=== PATIENT | male | born 1955 | race Caucasian/White ===

== ENCOUNTER 2019-03-30 16:47 | Inpatient (IN) | payer OTHER ==
[~2019-03-30] VITALS: Ht 167.6 cm; Wt 81.6 kg
[2019-03-30 16:47] VITALS: BP 146/87
--- NOTE | 2019-03-30 16:47 | NUR ---
PATIENT BIB BLS TO ER BED 1.
--- NOTE | 2019-03-30 16:47 | NUR ---
Patient BIBA BLS, transferred to bed 1. RN evaluating patient at bedside.
--- NOTE | 2019-03-30 16:55 | NUR ---
63 Y MALE BIBA C/O FOREIGN BODY, PT REPORTS STUCK PLASTIC CUP IN RECTUM. PAIN /. PATIENT DESCRIBES IT MORE DISCOMFORT. STATES THE INCIDENT OCCURRED APPROX 20 MIN BEFORE AMBULANCE ARRIVAL AT HIS HOME AND HE WASNT ABLE TO REMOVE THE OBJECT AFTER INSERTION. PT STATES HE IS VERY EMBARRASSED. VSS AT THIS TIME. PT [id number]. BED IS DOWN, LOCKED, BED RAIL X 1, ERMD TO SEE PT. PMH---HIGH CHOLESTEROL NKA
--- NOTE | 2019-03-30 16:58 | NUR ---
Dr. Ahumada evaluating patient at bedside.
--- NOTE | 2019-03-30 19:18 | NUR ---
RECEIVED REPORT FROM YANA TOVAR.
[2019-03-30] MEDS ORDERED: ATOR20TA PO (19:51)
--- NOTE | 2019-03-30 19:58 | NUR ---
PT IS AWAKE, ALERT, SITTING AT BEDSIDE. VSS. BREATHING EVEN, UNLABORED. SKIN PINK, WARM, DRY. NO COMPLAINTS AT THIS TIME.
[2019-03-30] MEDS ORDERED: ONDANSETRON 4 MG/2 ML VIAL IM/IVP PRN (20:05)
[2019-03-30] MEDS ORDERED: SENNA 8.6 MG TAB PO ONE (20:05)
[2019-03-30] MEDS ORDERED: MAGNESIUM CITRATE 300 ML BTL PO ONE (20:05)
[2019-03-30] MEDS ORDERED: DOCUSATE SODIUM 100 MG GELCAP PO PRN (20:05)
[2019-03-30] MEDS ORDERED: LACTULOSE 20 GM/30 ML UDC PO ONE (20:05)
[2019-03-30 20:06] LABS: BASOPHILS # (AUTO) 0.1 K/uL (0.00-0.22); BASOPHILS % (AUTO) 0.6 % (0.0-2.0); EOSINOPHILS # (AUTO) 0.1 K/uL (0-0.4); EOSINOPHILS % (AUTO) 0.9 % (0.0-4.0); HEMOGLOBIN 14.8 g/dL (12.0-18.0); LYMPHOCYTES # (AUTO) 0.6 K/uL (2.0-11.5); LYMPHOCYTES % (AUTO) 5.4 % (20.5-51.1); MEAN CORPUSCULAR HEMOGLOBIN 31 pg (27-31); MEAN CORPUSCULAR HGB CONC 34 g/dL (33-37); MONOCYTES # (AUTO) 0.7 K/uL (0.8-1.0); MONOCYTES % (AUTO) 6.9 % (1.7-9.3); NEUTROPHILS # (AUTO) 8.9 K/uL (1.8-7.7); NEUTROPHILS % (AUTO) 86.2 % (42.2-75.2); PLATELET COUNT (AUTO) 152 K/uL (140-450); RED BLOOD CELL COUNT(AUTO) 4.78 MIL/uL (4.20-6.10); RED CELL DISTRIBUTION WIDTH 12.9 % (11.6-13.7); WHITE BLOOD COUNT (AUTO) 10.3 K/uL (4.8-10.8)
[2019-03-30 20:22] LABS: PROTHROMBIN TIME 9.3 secs (10.8-13.4)
[2019-03-30 20:38] LABS: FREE T4 (FREE THYROXINE) 0.82 ng/dL (0.76-1.46); MAGNESIUM 2.3 mg/dL (1.8-2.4); PHOSPHORUS 2.7 mg/dL (2.5-4.9); THYROID STIMULATING HORMONE 2.53 uIU/mL (0.34-3.74)
--- NOTE | 2019-03-30 20:42 | NUR ---
Patient will be admitted to care of Dr. Reyes. Admited to MS. Will go to room 105B. Belongings list completed. Report to YANA Beasley.
[2019-03-30 20:43] LABS: ALBUMIN 4.1 g/dL (3.4-5.0); ANION GAP 10.3 (8-16); CARBON DIOXIDE 27.3 mmol/L (21-32); CREATININE 1.4 mg/dL (0.7-1.3); POTASSIUM 4.6 mmol/L (3.5-5.1); TOTAL BILIRUBIN 0.5 mg/dL (0.0-1.0)
[2019-03-30 20:47] VITALS: BP 131/85
--- NOTE | 2019-03-30 20:47 | NUR ---
REPORT RECEIVED BY ER NURSE, PATIENT AMBULATORY, AAOX4, DENIES PAIN, V/S STABLE. IV IN RIGHT AC 20 G SL, PATIENT REFUSED RECTAL EXAM. PATIENT STATED HE HAS BEEN NPO SINCE NOON. ADMISSION QUESTIONS ANSWERED, CONSENT FOR SURGERY SIGNED. MRSA SCREEN COLLECTED. PRE OP CHECK LIST QUESTIONED ANSWERED, WILL CONTINUE TO MONITOR.
--- NOTE | 2019-03-30 21:00 | NUR ---
CALLED [facility] SEE IF WANTED TO GIVE BOWEL PREP MEDICATIONS, MEDICATIONS WERE CANCELLED BY DR AMES DUE TO PATIENT IS NPO.
--- NOTE | 2019-03-30 21:05 | NUR ---
CALLED LAB FOR TYPE SCREEN STAT, CALLED RT FOR EKG STAT, CALLED RADIOLOGY FOR CHEST X-RAY STAT
--- NOTE | 2019-03-30 21:15 | NUR ---
DR BOTELLO STATED HE DID NOT WANT CROSS SCREEN DONE, NOTIFIED LAB
[2019-03-30] MEDS ORDERED: LABETALOL 100 MG/20 ML VIAL ONE (21:26)
--- NOTE | 2019-03-30 21:30 | NUR ---
RT AT BEDSIDE PERFORMING EKG
--- NOTE | 2019-03-30 21:37 | NUR ---
PATIENT LEFT TO OR, PATIENT STABLE
[2019-03-30] MEDS ORDERED: HYDROmorphone 1 MG/ML AMP IVP PRN (21:50)
[2019-03-30] MEDS ORDERED: ONDANSETRON 4 MG/2 ML VIAL IVP PRN (21:50)
[2019-03-30] MEDS ORDERED: KETAMINE 500 MG/5 ML VIAL ONE (21:52)
--- NOTE | 2019-03-30 23:00 | NUR ---
ORDERS TO PLACE PATIENT ON TELE DUE TO BP 220/120 IN OR
--- NOTE | 2019-03-30 23:10 | NUR ---
NOTED RECTAL BLEEDING
--- NOTE | 2019-03-30 23:17 | NUR ---
CALLED PHARMACY TOLD THAT NEOMYCIN DOES NOT COME IN IV FORM ONLY PO.
--- NOTE | 2019-03-30 23:25 | NUR ---
CALL FROM DR ZAMUDIO ORDER FOR NEOMYCIN 1 GRAM PO ONCE AT MIDNIGHT THAN 1/2 GRAM AGAIN AT 4 AM, FLAGYL PO 500 ML AT MIDNIGHT THAN AT 4 AM.
[2019-03-30] MEDS: NACL 0.9% 1,000 ML IV SCH (23:55)
[2019-03-31] VITALS: BP 158/88
[2019-03-31] MEDS ORDERED: NEOMYCIN 500 MG TAB PO SCH
--- NOTE | 2019-03-31 00:07 | NUR ---
CONSENT IS SIGNED AND IN CHART
--- NOTE | 2019-03-31 00:34 | NUR ---
NEOMYCIN NOT AVAILABLE, CHARGE NURSE AWARE, HOUSE SUP AWARE
--- NOTE | 2019-03-31 00:58 | NUR ---
PATIENT NOT ON BIG BOARD FOR SX TOMORROW MORNING
--- NOTE | 2019-03-31 03:00 | NUR ---
ERYTHROMYCIN PO NOT AVAILABLE, CHARGE NURSE AND HOUSE SUP AWARE, NOTIFIED DR AMES THAT MEDICATION IS NOT AVAILABLE.
--- NOTE | 2019-03-31 03:20 | NUR ---
DR AMES WILL CHANGE ORDER FOR ERYTHROMYCIN, WILL FOLLOW WITH ORDER
[2019-03-31 04:00] VITALS: BP 145/85
[2019-03-31] MEDS ORDERED: ERYTHROMYCIN 500 MG PO ONE (04:00)
[2019-03-31] MEDS ORDERED: NEOMYCIN 500 MG TAB PO ONE ×2 (04:00)
[2019-03-31] MEDS ORDERED: metroNIDAZOLE 500 MG TAB PO SCH ×2 (04:00)
--- NOTE | 2019-03-31 04:14 | NUR ---
CALLED DR BOTELLO, TOLD TO CANCEL ERYTHROMYCIN AND TO JUST GIVE FLAGYL.
--- NOTE | 2019-03-31 06:00 | NUR ---
BP 125/75
--- NOTE | 2019-03-31 06:26 | NUR ---
PATIENT STILL NOT ON BIG BOARD
--- NOTE | 2019-03-31 07:24 | NUR ---
ENDORSED PATIENT TO DAY SHIFT NURSE FOR CONTINUITY OF CARE. PATIENT STABLE.
--- NOTE | 2019-03-31 07:25 | NUR ---
RECEIVED REPORT FROM AUDIO VIDEO REPAIRER NURSE. PATIENT SITTING IN BED WATCHING TV. NO DISTRESS NOTED. DENIES ANY PAIN. AAOX4, CALM, COOPERATIVE, SKIN COLOR APPROPRIATE TO ETHNICITY, WARM TO TOUCH. SKIN INTACT. NO BLEEDING NOTED ON ANUS. IV SITE INTACT, PATENT, AND INFUSING IVF PER MD ORDERS. ABDOMEN SOFT. LUNGS CTA ON ALL LOBES, RESPIRATIONS EVEN, UNLABORED, ON ROOM AIR. REVIEWED PLAN OF CARE WITH PATIENT. PATIENT VERBALIZED UNDERSTANDING. SAFETY MEASURES IN PLACE, CALL LIGHT WITHIN REACH. WILL CONTINUE TO MONITOR.
[2019-03-31] MEDS ORDERED: SUCCINYLCHOLINE CHLORIDE 200 MG/10 ML VIAL IV ONE (07:56)
[2019-03-31] MEDS ORDERED: ONDANSETRON 4 MG/2 ML VIAL IVP ONE (07:56)
[2019-03-31] MEDS ORDERED: DEXAMETHASONE 4 MG/ML VIAL IVP ONE (07:56)
[2019-03-31] MEDS ORDERED: DESFLURANE 240 ML BTL INH ONE (07:56)
[2019-03-31] MEDS ORDERED: KETOROLAC 30 MG/ML VIAL IVP ONE (07:56)
[2019-03-31] MEDS ORDERED: PROPOFOL 200 MG/20 ML VIAL IV ONE (07:56)
[2019-03-31 08:00] VITALS: BP 117/74
[2019-03-31] MEDS ORDERED: CISATRACURIUM 10 MG/5 ML IV PRN (08:00)
--- NOTE | 2019-03-31 08:00 | NUR ---
OR NURSES AT BEDSIDE TO TAKE PATIENT FOR SURGERY. WILL CONTINUE TO MONITOR WHEN PATIENT RETURNS.
[2019-03-31] MEDS: BUPIVACAINE-MPF/EPI 0.25% 30 ML VIAL INJ ONE ×2 (08:14→13:53)
[2019-03-31] MEDS ORDERED: CISATRACURIUM 10 MG/5 ML MC PRN (08:15)
[2019-03-31] MEDS ORDERED: fentaNYL 0.05 MG/ML VIAL ONE (08:24)
[2019-03-31] MEDS ORDERED: ceFAZolin 1,000 MG VIAL ONE (08:29)
[2019-03-31 08:39] LABS: BASOPHILS % (AUTO) 0.4 % (0.0-2.0); EOSINOPHILS % (AUTO) 0.3 % (0.0-4.0); HEMATOCRIT 41.5 % (36-52); HEMOGLOBIN 14.1 g/dL (12.0-18.0); LYMPHOCYTES # (AUTO) 0.5 K/uL (2.0-11.5); LYMPHOCYTES % (AUTO) 6.5 % (20.5-51.1); MEAN CORPUSCULAR HEMOGLOBIN 31 pg (27-31); MEAN CORPUSCULAR HGB CONC 34 g/dL (33-37); MEAN CORPUSCULAR VOLUME 90.8 fL (80-94); MONOCYTES # (AUTO) 0.5 K/uL (0.8-1.0); MONOCYTES % (AUTO) 6.2 % (1.7-9.3); NEUTROPHILS # (AUTO) 6.6 K/uL (1.8-7.7); NEUTROPHILS % (AUTO) 86.6 % (42.2-75.2); PLATELET COUNT (AUTO) 148 K/uL (140-450); RED BLOOD CELL COUNT(AUTO) 4.57 MIL/uL (4.20-6.10); RED CELL DISTRIBUTION WIDTH 12.8 % (11.6-13.7); WHITE BLOOD COUNT (AUTO) 7.6 K/uL (4.8-10.8)
[2019-03-31] MEDS ORDERED: ONDANSETRON 4 MG/2 ML VIAL IVP PRN (08:40)
[2019-03-31] MEDS ORDERED: HYDROmorphone 1 MG/ML AMP IVP PRN (08:40)
[2019-03-31 08:56] LABS: CHOL/HDL RATIO 4.6 (1-4.5)
[2019-03-31 08:59] LABS: ANION GAP 12.3 (8-16); CARBON DIOXIDE 26.4 mmol/L (21-32); CREATININE 1.1 mg/dL (0.7-1.3); POTASSIUM 3.7 mmol/L (3.5-5.1)
[2019-03-31] MEDS ORDERED: ALBUTEROL SULFATE/IPRATROPIU 3 ML SOL IH SCH (10:45)
[2019-03-31 12:00] VITALS: BP 142/85
[2019-03-31] MEDS ORDERED: methylPREDNISolone SS 40 MG/ML VIAL IVP SCH (12:00)
[2019-03-31] MEDS ORDERED: ACETYLCYSTEINE 10% (100 MG/ML) 100 MG/ML VIAL INH SCH (12:00)
--- NOTE | 2019-03-31 12:10 | NUR ---
PATIENT BACK ON UNIT FROM OR. V/S STABLE. O2 SATS FLUCTUATE ON ROOM AIR AT 80-92%, HOWEVER, NO DISTRESS NOTED. PATIENT DENIES ANY SOB. NON-REBREATHER APPLIED AT THIS TIME. O2 SAT INCREASED TO 94% ON 10 L/MIN NON-REBREATHER. NOTIFIED RT. WILL CONTINUE TO MONITOR.
[2019-03-31] MEDS: NACL 0.9% 1,000 ML IV SCH (12:45)
[2019-03-31] MEDS ORDERED: FAMOTIDINE 20 MG/2 ML VIAL IV SCH (14:00)
[2019-03-31] MEDS: DEXT 5% / NACL 0.45% 1,000 ML IV SCH (14:38)
[2019-03-31] MEDS: PIPER/TAZO 3.375GM/D5W PREMIX 50 ML IV SCH ×2 (14:38→20:40)
--- NOTE | 2019-03-31 14:45 | NUR ---
PATIENT LYING DOWN IN BED SLEEPING, AROUSABLE BY VOICE. O2 AT 98% WITH NON-REBREATHER AT 10 L/MIN O2. SCHEDULED MEDICATIONS DUE GIVEN. WILL CONTINUE TO MONITOR.
[2019-03-31 16:00] VITALS: BP 118/71
--- NOTE | 2019-03-31 16:15 | NUR ---
FOUND PATIENT ON ROOM AIR SATURATING 78. PUT HIM ON 7 LITER OXIMIZER. SATURATING 95%.
[2019-03-31] MEDS: ALBUTEROL SULFATE/IPRATROPIU 3 ML SOL IH SCH (19:18)
--- NOTE | 2019-03-31 19:20 | NUR ---
RECEIVED REPORT FROM DAY SHIFT NURSE. PATIENT IS AWAKE, ALERT, SITTING UP IN BED. PATIENT IS ON 7L OXIMIZER, DENIES PAIN AT THIS TIME. PATIENT IS IN STABLE CONDITION. BED IS IN LOW POSITION, AND CALL LIGHT WITHIN REACH. WILL CONTINUE TO MONITOR PATIENT.
--- NOTE | 2019-03-31 19:25 | NUR ---
TX GIVEN. RETURNED TO 2L NC. SPO2 IS 95% PT STABLE AT THIS TIME. NO DISTRESS.
[2019-03-31 20:00] VITALS: BP 125/69
[2019-03-31] MEDS: FAMOTIDINE 20 MG/2 ML VIAL IV SCH (20:40)
[2019-03-31] MEDS: metroNIDAZOLE 500 MG TAB PO SCH (20:40)
[2019-03-31] MEDS: ACETAMINOPHEN 325 MG TAB PO PRN (20:41)
--- NOTE | 2019-03-31 22:13 | NUR ---
ROUNDS MADE, SEEN PT SLEEPING WITH OXIMIZER NOT IN PLACE, NO SIGNS OF RESP DISTRESS, PUT BACK OXIMIZER IN PLACE AND EDUCATE PT FOR THE NEED OF O2 VIA OXIMIZER DUE TO LOW SATURATION, VERBALIZED UNDERSTANDING.
--- NOTE | 2019-03-31 22:45 | NUR ---
ROUNDS MADE. PATIENT IS LYING DOWN, APPEARS TO BE ASLEEP, WITH NO SIGNS OF DISTRESS. WILL CONTINUE TO MONITOR PATIENT.
[2019-04-01] VITALS: BP 120/61
--- NOTE | 2019-04-01 00:15 | NUR ---
VITAL SIGNS TAKEN. PATIENT LYING DOWN IN BED, ASLEEP. CAME IN WITH PATIENT'S OXIMIZER OFF, PUT IT IN PLACE AND RE-EDUCATED PATIENT TO ALWAYS KEEP THE OXIMIZER ON FOR BETTER O2 SATURATION. PATIENT VERBALIZED UNDERSTANDING. INSTRUCTED FOR PATIENT TO COLLECT URINE SAMPLE ORDERED BY MD. PATIENT DENIES PAIN AT THIS TIME. BED IS IN LOW POSITION, SIDE RAILS ARE UP, AND CALL LIGHT WITHIN REACH. WILL CONTINUE TO MONITOR PATIENT.
[2019-04-01] MEDS: DEXT 5% / NACL 0.45% 1,000 ML IV SCH (01:30)
[2019-04-01] MEDS: PIPER/TAZO 3.375GM/D5W PREMIX 50 ML IV SCH ×4 (01:30→20:08)
--- NOTE | 2019-04-01 01:35 | NUR ---
HUNG IV ANTIBIOTICS ORDERED. HUNG NEW IV D5 1/2 NS. PATIENT LYING DOWN IN BED APPEARS TO BE SLEEPING. DRESSING DRY AND INTACT. DENIES PAIN AT THIS TIME. WILL CONTINUE TO MONITOR PATIENT.
--- NOTE | 2019-04-01 03:00 | NUR ---
PT AMBULATED TO BR WITH STEADY GAIT AND VOIDED FREELY, NO RESP DISTRESS NOTED, DENIES ANY PAIN, PT BACK TO BED AND RESUMED OXIMIZER AT 4L, URINE SENT TO LAB FOR TEST, MONITORED CLOSELY.
[2019-04-01 03:19] LABS: APPEARANCE,URINE CLEAR (CLEAR); BILIRUBIN,URINE NEGATIVE (NEGATIVE); BLOOD, URINE 1+ (NEGATIVE); COLOR,URINE YELLOW (YELLOW); LEUKOCYTE ESTERASE ,URINE NEGATIVE (NEGATIVE); NITRITE, URINE NEGATIVE (NEGATIVE); UGLUCOSE NEGATIVE (NEGATIVE)
[2019-04-01 03:27] LABS: BARBITURATE, URINE NEG. ng/ml (NEG <=200); BENZODIAZEPINE, URINE NEG. ng/mL (NEG <=200); CANNABINOID, URINE NEG. ng/mL (NEG <=50); COCAINE, URINE NEG. ng/mL (NEG <=300); OPIATE, URINE NEG. ng/mL (NEG <=2000); PHENCYCLIDINE SCREEN,URINE NEG. ng/mL (NEG <=25)
[2019-04-01 03:31] LABS: RBC,URINE 0-5 /HPF (0-5); WBC,URINE NONE SEEN /HPF (0-5)
[2019-04-01 04:00] VITALS: BP 103/60
--- NOTE | 2019-04-01 04:00 | NUR ---
PATIENT LYING IN BED, APPEARS TO BE ASLEEP. VITAL SIGNS TAKEN. DENIES PAIN AT THIS TIME. WILL CONTINUE TO MONITOR PATIENT.
[2019-04-01] MEDS: metroNIDAZOLE 500 MG TAB PO SCH ×3 (04:48→20:06)
--- NOTE | 2019-04-01 06:04 | NUR ---
PATIENT LYING IN BED APPEARS TO BE SLEEPING. NO SIGNS OF DISTRESS AT THIS TIME. WILL CONTINUE TO MONITOR PATIENT.
--- NOTE | 2019-04-01 06:28 | NUR ---
PATIENT HAS BEEN SCREENED AND CATEGORIZED LOW NUTRITION RISK. PATIENT WILL BE SEEN WITHIN 7 DAYS OF ADMISSION. 04/05/19 CORRY DE LEON MS, RDN
--- NOTE | 2019-04-01 07:15 | NUR ---
PT AWAKE SITTING ON BEDSIDE CHAIR, NO SIGNS OF DISTRESS, REPORT GIVEN TO YANA FRIED FOR CONTINUITY OF CARE.
--- NOTE | 2019-04-01 07:16 | NUR ---
RECEIVED REPORT FROM SUPERVISOR INDUSTRIAL ARTS EDUCATION NURSE. PATIENT SITTING IN BED ON HIS PHONE. NO DISTRESS NOTED. DENIES ANY PAIN. AAOX4, CALM, COOPERATIVE, SKIN COLOR APPROPRIATE TO ETHNICITY, WARM TO TOUCH. HAS ABD WOUND S/P EXPLORATORY LAPAROTOMY ON 03/31/19, DRESSING IS DRY AND INTACT. PATIENT AMBULATING AROUND ROOM WITH STEADY GAIT. PATIENT HAS VOIDED, NO BM YET, NO PASSING GAS YET. DENIES ANY NAUSEA/VOMITING AT THIS TIME AND THROUGHOUT NIGHTTIME. IV SITE INTACT, PATENT, AND INFUSING IVF PER MD ORDERS. REVIEWED PLAN OF CARE WITH PATIENT. PATIENT VERBALIZED UNDERSTANDING. SAFETY MEASURES IN PLACE, CALL LIGHT WITHIN REACH. WILL CONTINUE TO MONITOR.
--- NOTE | 2019-04-01 07:52 | NUR ---
AWAKE AND ALERT VERBALLY RESPONSIVE NO SOB NOTED PATIENT WITH BREAKFAST TRAY AT THIS TIME BOILER OPERATORS SUPERVISOR TO ATTEMPT HHN THERAPY AND RESPIRATORY DRUG AT A LATER TIME
[2019-04-01 07:59] LABS: BASOPHILS % (AUTO) 0.1 % (0.0-2.0); HEMOGLOBIN 12.8 g/dL (12.0-18.0); LYMPHOCYTES # (AUTO) 0.4 K/uL (2.0-11.5); LYMPHOCYTES % (AUTO) 2.9 % (20.5-51.1); MEAN CORPUSCULAR HEMOGLOBIN 31 pg (27-31); MEAN CORPUSCULAR HGB CONC 34 g/dL (33-37); MEAN CORPUSCULAR VOLUME 90.9 fL (80-94); MONOCYTES % (AUTO) 6.9 % (1.7-9.3); NEUTROPHILS # (AUTO) 13.3 K/uL (1.8-7.7); NEUTROPHILS % (AUTO) 90.1 % (42.2-75.2); PLATELET COUNT (AUTO) 120 K/uL (140-450); RED BLOOD CELL COUNT(AUTO) 4.18 MIL/uL (4.20-6.10); RED CELL DISTRIBUTION WIDTH 12.9 % (11.6-13.7); WHITE BLOOD COUNT (AUTO) 14.8 K/uL (4.8-10.8)
[2019-04-01 08:00] VITALS: BP 116/74
[2019-04-01 08:24] LABS: ANION GAP 12.1 (8-16); CARBON DIOXIDE 28.3 mmol/L (21-32); CREATININE 1.2 mg/dL (0.7-1.3); POTASSIUM 4.4 mmol/L (3.5-5.1)
[2019-04-01] MEDS: FAMOTIDINE 20 MG/2 ML VIAL IV SCH ×2 (08:42→20:06)
[2019-04-01] MEDS: ACETAMINOPHEN 325 MG TAB PO PRN (08:42)
[2019-04-01] MEDS: ALBUTEROL SULFATE/IPRATROPIU 3 ML SOL IH SCH ×3 (09:06→18:55)
--- NOTE | 2019-04-01 09:06 | NUR ---
SATURATION 90% ON ROOM AIR POST HHN THERAPY PLACED ON SUPPLEMENTAL OXYGEN AT 2 LPM VIA NASAL CANNULA
--- NOTE | 2019-04-01 09:20 | NUR ---
TOLERATED INCENTIVE SPIROMETRY WELL WITHOUT INCIDENT ENCOURAGED PATIENT WITH ACKNOWLEDGEMENT TO USE INCENTIVE SPIROMETRY EVERY 1-2 HOURS WHILE AWAKE
[2019-04-01] MEDS: NACL 0.45% 1,000 ML IV SCH (09:49)
--- NOTE | 2019-04-01 10:39 | NUR ---
PATIENT SITTING AT BEDSIDE CHAIR. NO DISTRESS NOTED. OXYGEN VIA NC ON PATIENT. WILL CONTINUE TO MONITOR.
--- NOTE | 2019-04-01 12:22 | NUR ---
PATIENT SITTING AT BEDSIDE CHAIR WITH LUNCH TRAY IN FRONT. NO DISTRESS NOTED. DENIES ANY PAIN. WILL CONTINUE TO MONITOR.
--- NOTE | 2019-04-01 13:14 | NUR ---
PATIENT SITTING IN BED. NO DISTRESS NOTED. DENIES ANY PAIN AT THIS TIME. SCHEDULED MEDICATIONS DUE GIVEN. WILL CONTINUE TO MONITOR.
--- NOTE | 2019-04-01 15:21 | NUR ---
PATIENT SITTING IN BED ON HIS PHONE. NO DISTRESS NOTED. CONDITION UNCHANGED. WILL CONTINUE TO MONITOR.
[2019-04-01 15:52] VITALS: BP 112/61
--- NOTE | 2019-04-01 17:45 | NUR ---
PATIENT SITTING IN BED WITH DINNER TRAY IN FRONT. NO DISTRESS NOTED. DENIES NAUSEA VOMITING. WILL CONTINUE TO MONITOR.
[2019-04-01] MEDS: MORPHINE SULFATE 2 MG/ML SYR IVP PRN (18:19)
--- NOTE | 2019-04-01 18:23 | NUR ---
PATIENT COMPLAINS OF ABD PAIN, MORPHINE GIVEN AT THIS TIME. WILL CONTINUE OT MONITOR.
[2019-04-01] MEDS ORDERED: MORPHINE SULFATE 2 MG/ML SYR ONE (18:28)
--- NOTE | 2019-04-01 19:28 | NUR ---
GAVE REPORT TO MILLING MACHINE TENDER NURSE FOR CONTINUITY OF CARE. PATIENT IN STABLE CONDITION.
--- NOTE | 2019-04-01 19:29 | NUR ---
RECEIVED PT AWAKE SITTING ON BED, AAOX4, ABLE TO MAKE NEEDS KNOWN, VITAL SIGNS STABLE, SAT-97% ON 2L O2 VIA NASAL CANNULA, NO SOB NOTED BUT WHEEZING ON AUSCULTATION, RT FOR BREATHING TX, DENIES ANY PAIN, IVF INFUSING WELL, ABDOMINAL DRESSING DRY AND INTACT, HYPOACTIVE BOWEL SOUNDS, TOLERATING FULL LIQUID DIET, DENIES PASSING GAS, PLAN OF CARE DISCUSSED, SAFETY MEASURES IN PLACE, CALL LIGHT WITHIN REACH.
--- NOTE | 2019-04-01 19:34 | NUR ---
1855 HHNTX GIVEN AND CPT DONE BILAT. PATIENT HAS MILD EXP WHEEZE
--- NOTE | 2019-04-01 20:20 | NUR ---
SEEN AMBULATING AROUND THE ROOM, TOLERATING WELL, DUE MEDS ADMINISTERED, ALL NEEDS ATTENDED.
--- NOTE | 2019-04-01 21:30 | NUR ---
SEEN PT SLEEPING, VISIBLE CHEST RISE AND FALL, IVF INFUSING WELL, MONITORED CLOSELY.
[2019-04-02] VITALS: BP 125/74
--- NOTE | 2019-04-02 | NUR ---
PT SLEEPING, AROUSABLE TO VERBAL STIMULI, VITAL SIGNS STABLE, DENIES ANY PAIN, NO SOB NOTED, IVF INFUSING WELL, CONTINUE TO MONITOR CLOSELY.
[2019-04-02] MEDS: PIPER/TAZO 3.375GM/D5W PREMIX 50 ML IV SCH ×4 (01:09→22:20)
[2019-04-02] MEDS: NACL 0.45% 1,000 ML IV SCH ×2 (02:35→18:41)
[2019-04-02] MEDS: MORPHINE SULFATE 2 MG/ML SYR IVP PRN (04:13)
[2019-04-02] MEDS: metroNIDAZOLE 500 MG TAB PO SCH ×3 (04:13→22:22)
--- NOTE | 2019-04-02 04:15 | NUR ---
PT SEEN SITTING ON BEDSIDE CHAIR, COMPLAINING OF PAIN, MEDICATED PRN WITH MORPHINE IVP, DUE ZOSYN IVPB ADMINISTERED, ABDOMINAL DRESSING DRY AND INTACT, STATED NOT PASSING GAS YET, MONITORED CLOSELY.
--- NOTE | 2019-04-02 06:05 | NUR ---
PT SEEN SLEEPING, NO SIGNS OF DISTRESS, IVF INFUSING WELL, MONITORED CLOSELY.
[2019-04-02 06:55] LABS: BASOPHILS % (AUTO) 0.4 % (0.0-2.0); EOSINOPHILS # (AUTO) 0.1 K/uL (0-0.4); EOSINOPHILS % (AUTO) 0.7 % (0.0-4.0); HEMATOCRIT 37.4 % (36-52); HEMOGLOBIN 12.5 g/dL (12.0-18.0); LYMPHOCYTES # (AUTO) 0.7 K/uL (2.0-11.5); LYMPHOCYTES % (AUTO) 6.5 % (20.5-51.1); MEAN CORPUSCULAR HEMOGLOBIN 31 pg (27-31); MEAN CORPUSCULAR HGB CONC 34 g/dL (33-37); MEAN CORPUSCULAR VOLUME 91.3 fL (80-94); MONOCYTES # (AUTO) 1.2 K/uL (0.8-1.0); MONOCYTES % (AUTO) 10.8 % (1.7-9.3); NEUTROPHILS # (AUTO) 9.1 K/uL (1.8-7.7); NEUTROPHILS % (AUTO) 81.6 % (42.2-75.2); PLATELET COUNT (AUTO) 105 K/uL (140-450); RED BLOOD CELL COUNT(AUTO) 4.09 MIL/uL (4.20-6.10); WHITE BLOOD COUNT (AUTO) 11.2 K/uL (4.8-10.8)
[2019-04-02 07:15] LABS: ANION GAP 12.5 (8-16); CARBON DIOXIDE 29.3 mmol/L (21-32); POTASSIUM 3.8 mmol/L (3.5-5.1)
[2019-04-02 07:16] LABS: MAGNESIUM 2.5 mg/dL (1.8-2.4); PHOSPHORUS 2.4 mg/dL (2.5-4.9)
--- NOTE | 2019-04-02 07:23 | NUR ---
PT AWAKE, NO SIGNS OF DISTRESS, REPORT GIVEN TO YANA TURCIOS FOR CONTINUITY OF CARE.
--- NOTE | 2019-04-02 07:24 | NUR ---
RECEIVED REPORT FROM OXIDE FURNACE TENDER NURSE AUTUMN FOR CONTINUITY OF CARE. PT IN STABLE CONDITION. RESPIRATIONS EVEN AND UNLABORED. IV INTACT AND PATENT. SAFETY MEASURES IN PLACE. BED IN LOW POSITION. CALL LIGHT AT BEDSIDE, USE INSTRUCTIONS GIVEN. WILL CONTINUE TO MONITOR.
[2019-04-02] MEDS: ALBUTEROL SULFATE/IPRATROPIU 3 ML SOL IH SCH ×3 (07:30→19:41)
[2019-04-02 08:00] VITALS: BP 111/80
[2019-04-02] MEDS ORDERED: BISACODYL 10 MG SUPP RC PRN (08:45)
[2019-04-02] MEDS ORDERED: HYDROmorphone 1 MG/ML AMP IVP PRN (08:50)
[2019-04-02] MEDS: FAMOTIDINE 20 MG/2 ML VIAL IV SCH ×2 (09:05→22:21)
--- NOTE | 2019-04-02 09:45 | NUR ---
GAVE ORDERED DUE MEDICATIONS. PT TOLERATED WELL. CALL LIGHT AT BEDSIDE. BED IN LOW POSITION. WILL CONTINUE TO MONITOR.
--- NOTE | 2019-04-02 11:29 | NUR ---
PT SLEEPING AT THIS TIME. RESPIRATIONS EVEN AND UNLABORED. BED IN LOW POSITION. CALL LIGHT AT BEDSIDE. WILL CONTINUE TO MONITOR.
--- NOTE | 2019-04-02 13:22 | NUR ---
PT CALLED [employer] TO IN[employer] INSURANCE COMMUNICATED FOR PAYMENT. [employer] GAVE HIM PHONE # FOR [employer] ACCOUNTING FOR ANY QUESTIONS.
--- NOTE | 2019-04-02 14:55 | NUR ---
POST ABG PUNCTURE PLACED PATIENT BACK ON SUPPLEMENTAL OXYGEN AT 2 LPM VIA NC
--- NOTE | 2019-04-02 15:02 | NUR ---
PT STANDING NEXT TO THE BED IN STABLE CONDITION. RESPIRATIONS EVEN AND UNLABORED. O2 2L VIA NC PATENT AND INTACT. BED IN LOW POSITION. CALL LIGHT AT BEDSIDE. WILL CONTINUE TO MONITOR.
--- NOTE | 2019-04-02 15:07 | NUR ---
REVIEWED ABG SAMPLE REPORT WITH DR. LEVAR SALINAS NO NEW ORDERS EQUIPMENT INSTALLATION PROFESSIONAL REPORTED TO CARA TURNER POST ABG PUNCTURE PLACED PATIENT BACK ON SUPPLEMENTAL OXYGEN AT 2 LPM VIA NC
--- NOTE | 2019-04-02 15:31 | NUR ---
DR. ZAMUDIO CALLED: -KUB RESULTS: NO SIGNIFICANT CHANGE WHEN COMPARED TO PREVIOUS EXAM, NO OBSTRUCTIVE BOWEL GAS PATTERN. - CHANGE DRESSING, DRY DRESSING ONLY, PER DR. ZAMUDIO.
[2019-04-02 16:00] VITALS: BP 137/87
--- NOTE | 2019-04-02 17:45 | NUR ---
PT STANDING AT BEDSIDE IN STABLE CONDITION. RESPIRATIONS EVEN AT THIS TIME. WILL CONTINUE TO MONITOR. BED IN LOW POSITION. CALL LIGHT AT BEDSIDE.
--- NOTE | 2019-04-02 19:28 | NUR ---
GAVE REPORT TO BEATER ENGINEER HELPER NURSE MARIA M FOR CONTINUITY OF CARE. PT IN STABLE CONDITION.
--- NOTE | 2019-04-02 19:28 | NUR ---
RECEIVED REPORT FROM AM SHIFT NURSE. PT AWAKE, ALERT O X 4 AMBULATORY STEADY GAIT. PT IN STABLE CONDITION. RESPIRATIONS EVEN AND UNLABORED. IV INTACT AND PATENT.ON AC G 20. SAFETY MEASURES IN PLACE. BED IN LOW POSITION. CALL LIGHT AT BEDSIDE, USE INSTRUCTIONS GIVEN. WILL CONTINUE TO MONITOR.
[2019-04-02 20:00] VITALS: BP 121/75
--- NOTE | 2019-04-02 21:00 | NUR ---
NO-ADMINISTERED HEPARIN , LOW PLT 105; LOW PT 9.3
[2019-04-02] MEDS: ACETAMINOPHEN 325 MG TAB PO PRN (22:01)
--- NOTE | 2019-04-02 22:01 | NUR ---
PT C/O OF HEADACHE WILL MEDICATE. WILL REASSESS PAIN LATER
[2019-04-03] MEDS: PIPER/TAZO 3.375GM/D5W PREMIX 50 ML IV SCH ×2 (02:08→08:42)
[2019-04-03 04:00] VITALS: BP 124/82
--- NOTE | 2019-04-03 04:28 | NUR ---
PT C/O OF HEADACHE WILL MEDICATE. WILL REASSESS PAIN LATER
[2019-04-03] MEDS: ACETAMINOPHEN 325 MG TAB PO PRN (04:38)
[2019-04-03] MEDS: metroNIDAZOLE 500 MG TAB PO SCH (04:41)
--- NOTE | 2019-04-03 04:50 | NUR ---
PT WENT TO BATHROOM, JUST TO VOID. NO FLATUS AND NO BM YET SINCE SURGERY WILL INFORM NEXT SHIFT NURSE.
--- NOTE | 2019-04-03 06:47 | NUR ---
PT AWAKE, ALERT O X 4. PT AMBULATORY. PT HAS NO FLATUS YET AND NO BM. NO SOB, NO COMPLAINTS OF PAIN AT THIS TIME.WILL ENDORSE TO NEXT SHIFT
[2019-04-03 07:15] LABS: BASOPHILS # (AUTO) 0.1 K/uL (0.00-0.22); BASOPHILS % (AUTO) 0.8 % (0.0-2.0); EOSINOPHILS # (AUTO) 0.3 K/uL (0-0.4); EOSINOPHILS % (AUTO) 3.9 % (0.0-4.0); HEMATOCRIT 36.7 % (36-52); HEMOGLOBIN 12.3 g/dL (12.0-18.0); LYMPHOCYTES # (AUTO) 0.4 K/uL (2.0-11.5); LYMPHOCYTES % (AUTO) 6.5 % (20.5-51.1); MEAN CORPUSCULAR HEMOGLOBIN 31 pg (27-31); MEAN CORPUSCULAR HGB CONC 34 g/dL (33-37); MEAN CORPUSCULAR VOLUME 91.3 fL (80-94); MONOCYTES # (AUTO) 0.8 K/uL (0.8-1.0); MONOCYTES % (AUTO) 12.3 % (1.7-9.3); NEUTROPHILS # (AUTO) 5.1 K/uL (1.8-7.7); NEUTROPHILS % (AUTO) 76.5 % (42.2-75.2); PLATELET COUNT (AUTO) 97 K/uL (140-450); RED BLOOD CELL COUNT(AUTO) 4.01 MIL/uL (4.20-6.10); RED CELL DISTRIBUTION WIDTH 13.1 % (11.6-13.7); WHITE BLOOD COUNT (AUTO) 6.7 K/uL (4.8-10.8)
--- NOTE | 2019-04-03 07:18 | NUR ---
RECEIVED BEDSIDE REPORT FROM DEXIGRAPH OPERATOR NURSE FOR CONTINUITY OF CARE. PATIENT IS AWAKE AND RESTING ON BED AT THIS TIME. EVEN AND UNLABORED CHEST RISES NOTED. DENIES PAIN AND SOB. NO SIGNS OF DISTRESS NOTED. IV ON RAC 20G, CLEAN AND DRY, INFUSING PER MD ORDER. INCISION SITES ON ABDOMINAL REGION NOTED, DRESSING INTACT AND CLEAN, OTHERWISE SKIN INTACT AND CLEAN. PATIENT IS ABLE TO AMBULATE AND CONTINENT. DISCUSSED PLAN OF CARE WITH PATIENT AND PATIENT VERBALIZED OK. SAFETY MEASURES IN PLACE. BED IN LOW POSITION AND CALL LIGHT WITHIN REACH. INSTRUCTED PATIENT TO USE THE CALL LIGHT FOR ANY ASSISTANCE AND PATIENT WAS AWARE.
[2019-04-03 07:33] LABS: ANION GAP 10.5 (8-16); CARBON DIOXIDE 29.3 mmol/L (21-32); POTASSIUM 3.8 mmol/L (3.5-5.1)
[2019-04-03] MEDS: ALBUTEROL SULFATE/IPRATROPIU 3 ML SOL IH SCH (07:35)
[2019-04-03 08:00] VITALS: BP 109/71
[2019-04-03] MEDS: FAMOTIDINE 20 MG/2 ML VIAL IV SCH (08:46)
--- NOTE | 2019-04-03 08:49 | NUR ---
ADMINISTERED MEDS PER MD ORDER, PATIENT TOLERATED WELL. HOLD HAPERIN DUE TO LOW PLT 97 FROM AM LAB. PATIENT IS SITTING UP ON BED AND RESTING AT THIS TIME. DENIES PAIN AND SOB. NO SIGNS OF DISTRESS NOTED. SAFETY MEASURES IN PLACE. INSTRUCTED PATIENT TO USE THE CALL LIGHT FOR ANY ASSISTANCE AND PATIENT WAS AWARE.
--- NOTE | 2019-04-03 09:31 | NUR ---
DR ZAMUDIO IS ASSESSING PATIENT AT BEDSIDE. DR ZAMUDIO CHANGED PATIENT'S INCISION DRESSING, PATIENT TOLERATED WELL. NO SIGNS OF DISTRESS NOTED. BED IN LOW POSITION AND CALL LIGHT WITHIN REACH.
--- NOTE | 2019-04-03 09:48 | NUR ---
DR SALINAS IS TALKING TO PATIENT AT BEDSIDE. NO SIGNS OF DISTRESS NOTED. SAFETY MEASURES IN PLACE. BED IN LOW POSITION AND CALL LIGHT WITHIN REACH.
[2019-04-03] MEDS: NACL 0.45% 1,000 ML IV SCH (09:53)
[2019-04-03] MEDS ORDERED: HYDR-5123 PO (10:12)
[2019-04-03] MEDS ORDERED: METR500T1 PO (10:13)
[2019-04-03] MEDS ORDERED: IBUP-1842 PO (10:23)
--- NOTE | 2019-04-03 10:30 | NUR ---
SW provided resources to low cost clinics and [facility] to patient. SW/CM will follow up as needed.
--- NOTE | 2019-04-03 11:27 | NUR ---
PATIENT WAS AWARE THAT HE IS GOING TO BE DISCHARGE. PER PATIENT, HE WILL TAKE THE UBER HOME SINCE NO ONE IS ABLE TO PICK HIM UP, BUT HE REQUESTS TO HAVE LUNCH BEFORE HE LEAVES. DISCHARGE DOCUMENT HAS BEEN PREPARED AND READY.
--- NOTE | 2019-04-03 12:00 | NUR ---
WOUND PICTURE TAKEN AND APPLIED CLEAN DRESSINGS. PATIENT TOLERATED WELL. DENIED PAIN. SAFETY MEASURES IN PLACE. BED IN LOW POSITION AND CALL LIGHT WITHIN REACH. INSTRUCTED PATIENT TO USE THE CALL LIGHT FOR ANY ASSISTANCE AND PATIENT WAS AWARE.
--- NOTE | 2019-04-03 12:15 | NUR ---
PATIENT IS EATING DINNER ON BED. PER PATIENT, HE WILL FINISH DINNER THEN CHANGE INTO HIS CLOTHES. HE HAS TO CALL [facility] TO TAKE HIM HOME. NO SIGNS OF DISTRESS NOTED. SAFETY MEASURES IN PLACE.
--- NOTE | 2019-04-03 12:40 | NUR ---
DISCHARGE INSTRUCTION PROVIDED TO PATIENT AT BEDSIDE. EDUCATED PATIENT TO FOLLOW UP WITH MD, WOUND CARE INSTRUCTION, MEDICATED REGIMEN AND SIDE EFFECTS, DIET REGIMEN, AND GO TO THE ER OR CALL 911 IF EXPERIENCING ABNORMAL SYMPTOMS. ANSWERED ALL PATIENT'S QUESTIONS AND PATIENT VERBALIZED UNDERSTANDING. PROVIDED WOUND CARE SUPPLIES AND PRESCRIPTIONS. PATIENT CHECKED ALL CABINETS AND TOOK ALL HIS BELONGINGS. PER PATIENT, HIS UBER IS GOING TO ARRIVE IN 15 MINS.
[2019-04-03] MEDS ORDERED: metroNIDAZOLE 250 MG TAB PO SCH (13:00)
--- NOTE | 2019-04-03 13:00 | NUR ---
REMOVED ALL ARM BANDS AND D/C IV, IV CANNULA INTACT AND NO BLEEDING AT IV SITE. PATIENT TOOK ALL HIS BELONGINGS. STUDENT NURSE ESCORTED PATIENT TO THE LOBBY WITH THE WHEELCHAIR. PATIENT IS GOING TO DISCHARGE AT THIS TIME IN STABLE CONDITION.
== END 2019-04-03 13:00 | disposition home or self-care (01) | DRG 344 ==
LOC: MED 16:47 → MTU 20:18
PROVIDERS: ADMIT General Practice; ATTEND General Practice
PROC: 0DJD8ZZ Inspection of Lower Intestinal Tract, Via Natural or Artificial Opening Endoscopic (ICD-10-PCS; principal; 2019-03-30 21:30)
PROC: 0WJP0ZZ Inspection of Gastrointestinal Tract, Open Approach (ICD-10-PCS; 2019-03-31)
PROC: 0DCN0ZZ Extirpation of Matter from Sigmoid Colon, Open Approach (ICD-10-PCS; 2019-03-31)
DX: T18.5XXA Foreign body in anus and rectum, initial encounter (principal); J96.01 Acute respiratory failure with hypoxia; J69.0 Pneumonitis due to inhalation of food and vomit; N17.0 Acute kidney failure with tubular necrosis; K59.00 Constipation, unspecified; D72.829 Elevated white blood cell count, unspecified; E86.0 Dehydration; I51.7 Cardiomegaly; E78.5 Hyperlipidemia, unspecified; E83.39 Other disorders of phosphorus metabolism; E83.41 Hypermagnesemia; X58.XXXA Exposure to other specified factors, initial encounter; Y93.89 Activity, other specified; Y92.89 Other specified places as the place of occurrence of the external cause; Y99.8 Other external cause status; E78.00 Pure hypercholesterolemia, unspecified; Z60.2 Problems related to living alone
CPT/HCPCS: 36415; 36600; 71045; 74018; 80048; 80053; 80305; 81001; 82140; 82150; 82803; 83036; 83690; 83735; 83880; 84100; 84134; 84439; 84443; 84484; 85025; 85610; 85730; 86886; 86900; 86901; 87081; 88300; 93005; 94640; 94667; 99285; G0482; J0330; J0690; J1100; J1644; J1885; J2270; J2405; J2543; J2704; J2920; J3010; J3490; J7030; J7620; Q0092

== ENCOUNTER 2023-07-25 21:28 | Emergency (ER) | payer OTHER ==
[~2023-07-25] VITALS: Ht 165.1 cm; Wt 79.4 kg
[2023-07-25 21:28] VITALS: BP 145/83; PULSE 71; RESP 16; TEMP 97.8; O2SAT 97
[~2023-07-25 21:28] MED LIST: ATOR20TA PO; HYDR-5080 PO; IBUP-1842 PO; METR500T1 PO
== END 2023-07-25 22:55 | disposition home or self-care (01) ==
LOC: MED 21:28
DX: N50.1 Vascular disorders of male genital organs (principal)
CPT/HCPCS: 99283